=== PATIENT | female | born 1960 | race Caucasian/White ===

== ENCOUNTER 2022-04-05 09:57 | Emergency (ER) | payer OTHER ==
[~2022-04-05] VITALS: Ht 157.5 cm; Wt 82.0 kg
[2022-04-05] MEDS ORDERED: AMLO5TAB88 PO (10:16)
[2022-04-05] MEDS ORDERED: APIX5TAB PO (10:16)
[2022-04-05] MEDS ORDERED: METO25TA6 PO (10:16)
[2022-04-05] MEDS ORDERED: LEVO25TA7 PO (10:16)
[2022-04-05] MEDS ORDERED: ATOR20TA65 PO (10:16)
[2022-04-05] MEDS ORDERED: REN800 PO (10:16)
[2022-04-05] MEDS ORDERED: KETOROLAC 30MG/ML VIAL IV STA (11:21)
[2022-04-05] MEDS ORDERED: MORPHINE SULFATE 4 MG/ML CPJ (NOT FOR IM USE) IV ONE (12:00)
[2022-04-05 12:07] LABS: CHLORIDE 104 mEq/L (98-107)
[2022-04-05 12:08] LABS: BASOPHILS % 0.8 % (0.0-2.0); EOSINOPHILS % 1.1 % (0.0-5.0); HEMATOCRIT. 40.9 % (36.0-48.0); HEMOGLOBIN. 13.3 g/dL (12.0-16.0); MEAN CORPUSCULAR HEMOGLOBIN 29.5 pg (28.0-32.0); MEAN CORPUSCULAR VOLUME 90.7 fL (81.0-99.0); MEAN PLATELET VOLUME 7.5 fl (7.4-10.4); MONOCYTES % 4.7 % (2.0-8.0); NEUTROPHILS % 69.4 % (40.0-76.0); PLATELET 206 x1000/uL (130-400); RED BLOOD CELL COUNT 4.51 mill/uL (4.2-5.4); RED CELL DISTRIBUTION WIDTH 15.7 % (11.6-14.6)
[2022-04-05 12:15] LABS: PROTHROMBIN TIME 10.4 sec (9.6-11.0)
[2022-04-05] MEDS ORDERED: T3 PO (12:31)
[2022-04-05 12:54] VITALS: BP 107/53
== END 2022-04-05 12:50 | disposition home or self-care (01) ==
LOC: ER 09:57
DX: M79.602 Pain in left arm (principal); I12.0 Hypertensive chronic kidney disease with stage 5 chronic kidney disease or end stage renal disease; N18.6 End stage renal disease; Z99.2 Dependence on renal dialysis; E03.9 Hypothyroidism, unspecified; Z88.0 Allergy status to penicillin
CPT/HCPCS: 36415; 80053; 85025; 85610; 96374; 96375; 99284; J1885; J2270